=== PATIENT | female | born 1985 | race Caucasian/White ===

== ENCOUNTER 2020-09-29 21:36 | Emergency (ER) | payer MEDICAID ==
[~2020-09-29] VITALS: Ht 160 cm; Wt 129.3 kg
[2020-09-29 21:55] VITALS: BP 109/78
--- NOTE | 2020-09-29 22:00 | NUR ---
PT TAKEN TO ER BED 9
--- NOTE | 2020-09-29 22:10 | NUR ---
35/F BIB SELD C/O RIGHT FOOT PAIN WITH PAIN SCALE OF 7/10 S/P FALL TODAY. NO SWELLING, BRUISING, REDNESS ON ASSESSMENT. PT DENIES ANY NUMBNESS OR TINGLING. MED HX: DM, ASTHMA ALLERGIES: NKA
[2020-09-30] MEDS ORDERED: IBUPROFEN 600 MG TAB PO ONE (00:30)
--- NOTE | 2020-09-30 00:42 | NUR ---
X-Ray at bedside.
[2020-09-30] MEDS ORDERED: NAPR-54 PO (01:27)
--- NOTE | 2020-09-30 01:34 | NUR ---
jeanie wrap placed on pt r ankle. +csm
--- NOTE | 2020-09-30 01:35 | NUR ---
pt given instruction on proper use of crutches. crutches adjusted to pt height and arm length. pt demonstrated safe use for approximately 40 feet, pt stated she felt comfortable with use.
[2020-09-30 01:39] VITALS: BP 109/78
--- NOTE | 2020-09-30 01:39 | NUR ---
Patient discharged with v/s stable. Written and verbal after care instructions given and explained. Patient alert, oriented and verbalized understanding of instructions. Ambulatory with CRUTCHES. All questions addressed prior to discharge. ID band removed. Patient advised to follow up with PMD. Rx of NAPROSYN given. Patient educated on indication of medication including possible reaction and side effects. Opportunity to ask questions provided and answered.
== END 2020-09-30 01:39 | disposition home or self-care (01) ==
LOC: MED 21:36
DX: S93.401A Sprain of unspecified ligament of right ankle, initial encounter (principal); E11.9 Type 2 diabetes mellitus without complications; I10 Essential (primary) hypertension; E66.01 Morbid (severe) obesity due to excess calories; F17.210 Nicotine dependence, cigarettes, uncomplicated; Z71.6 Tobacco abuse counseling; Z68.43 Body mass index [BMI] 50.0-59.9, adult; Z79.899 Other long term (current) drug therapy; W19.XXXA Unspecified fall, initial encounter; Y93.89 Activity, other specified; Y92.89 Other specified places as the place of occurrence of the external cause; Y99.8 Other external cause status
CPT/HCPCS: 73610; 99283

== ENCOUNTER 2021-06-04 11:53 | Emergency (ER) | payer MEDICAID ==
[~2021-06-04] VITALS: Ht 160 cm; Wt 123.8 kg
[~2021-06-04 11:53] MED LIST: NAPR-54 PO
[2021-06-04 12:08] VITALS: BP 150/86
--- NOTE | 2021-06-04 12:59 | NUR ---
RAD AT BEDSIDE
[2021-06-04 13:20] LABS: BASOPHILS % (AUTO) 0.5 % (0.0-2.0); EOSINOPHILS # (AUTO) 0.3 K/uL (0-0.4); HEMATOCRIT 40.4 % (36-48); LYMPHOCYTES # (AUTO) 2.2 K/uL (2.5-16.5); LYMPHOCYTES % (AUTO) 23.5 % (20.5-51.1); MONOCYTES # (AUTO) 0.7 K/uL (0.8-1.0)
[2021-06-04 13:28] LABS: EOSINOPHILS % (AUTO) 3.7 % (0.0-4.0); HEMOGLOBIN 13.7 g/dL (12.0-16.0); MEAN CORPUSCULAR HEMOGLOBIN 30 pg (27-31); MEAN CORPUSCULAR HGB CONC 34 g/dL (33-37); MEAN CORPUSCULAR VOLUME 88.3 fL (80-94); MONOCYTES % (AUTO) 7.9 % (1.7-9.3); NEUTROPHILS % (AUTO) 64.4 % (42.2-75.2); PLATELET COUNT (AUTO) 237 K/uL (140-450); RED BLOOD CELL COUNT(AUTO) 4.58 MIL/uL (4.20-5.40); RED CELL DISTRIBUTION WIDTH 13.8 % (11.6-13.7); WHITE BLOOD COUNT (AUTO) 9.3 K/uL (4.8-10.8)
[2021-06-04 13:45] LABS: ALBUMIN 3.5 g/dL (3.4-5.0); ANION GAP 10.5 (8-16); CARBON DIOXIDE 26.1 mmol/L (21-32); CREATININE 0.6 mg/dL (0.6-1.3); POTASSIUM 3.6 mmol/L (3.5-5.1); TOTAL BILIRUBIN 0.3 mg/dL (0.0-1.0)
[2021-06-04] MEDS ORDERED: IBUP-2213 PO (14:14)
[2021-06-04 14:39] VITALS: BP 128/62
--- NOTE | 2021-06-04 14:45 | NUR ---
Patient discharged with v/s stable. Written and verbal after care instructions given on non specific chest pain and explained. Patient alert, oriented and verbalized understanding of instructions. Ambulatory with steady gait. All questions addressed prior to discharge. ID band removed. Patient advised to follow up with PMD. Rx of Ibuprofen given. Patient educated on indication of medication including possible reaction and side effects. Opportunity to ask questions provided and answered.
--- NOTE | 2021-06-04 14:46 | NUR ---
The patient's care was reviewed and supervised by [facility], RN.
== END 2021-06-04 14:45 | disposition home or self-care (01) ==
LOC: MED 11:53
DX: R07.89 Other chest pain (principal); E11.9 Type 2 diabetes mellitus without complications; I10 Essential (primary) hypertension; Z79.899 Other long term (current) drug therapy
CPT/HCPCS: 36415; 71045; 80053; 81002; 81025; 84484; 85025; 93005; 99285; Q0092